=== PATIENT | female | born 1945 | race Caucasian/White ===

== ENCOUNTER 2019-10-10 06:28 | Day surgery (SDC) | payer BC ==
[~2019-10-10 06:28] MED LIST: Lidocaine 1% w EPI 1:200,000* SDV 30 ML VIAL ONE; Sodium Bicarbonate 8.4% IV* 50 ML VIAL ONE
[2019-10-10] MEDS ORDERED: Bupivacaine 0.25% SDV* 30 ML ONE ×2 (07:11→07:24)
[2019-10-10 08:13] VITALS: BP 111/60
--- NOTE | 2019-10-10 14:41 | OP ---
OPERATIVE REPORT: DATE OF OPERATION: 10/10/19 DATE OF : 47 SURGEON: Castro Gould MD HEEL BUILDER MACHINE: ARCHIE Jones ANESTHESIOLOGIST: None. ANESTHESIA: Local only with 0.25% Marcaine. PRE-OP DIAGNOSIS: Right small finger dorsal proximal interphalangeal joint mass. POST-OP DIAGNOSIS: Right small finger dorsal proximal interphalangeal joint ganglion cyst. OPERATIVE PROCEDURE: Excision of right small finger proximal interphalangeal joint ganglion cyst. INDICATIONS: Mr. Smith has a cyst over the dorsum of the finger. We talked about treatment options , risks, and benefits. She wanted to proceed with surgery. The patient understands there is a chanc e of cyst recurrence and stiffness. ESTIMATED BLOOD LOSS: 1 mL. COMPLICATIONS: None. FINDINGS: See above and below. DESCRIPTION OF PROCEDURE: Ms. Smith was seen in the preoperative holding area. The correct site, si de, and procedure were identified. We came back to the operating room, the arm was prepped and drape d in the usual fashion. A time-out was performed. The finger was exsanguinated and tourniquet was let down proximally on the finger. I then made a smal l curvilinear incision over the dorsal ulnar aspect of the joint over the cyst. Dissection was nola ed down. The margins of the cyst were developed with tenotomy scissors and the cyst was amputated of f the tendon sheath with the [place] blade. A Bovie was used to cauterize the area where the cyst was emanating from the joint and through the split in the tendon. Once I cauterized the area, the wound was irrigated out. Skin was closed with 4-0 nylon suture. Soft dressing was applied and she was brie en to the recovery room in stable condition. [id number]/[id number] #: [id number]
== END 2019-10-10 08:13 | disposition home or self-care (01) ==
LOC: OREAST 06:28
PROVIDERS: ATTEND Orthopaedic Surgery Hand Surgery
DX: M67.441 Ganglion, right hand (principal); Z87.891 Personal history of nicotine dependence
CPT/HCPCS: 88304; J2001; J3490